=== PATIENT | male | born 1965 | race Caucasian/White ===

== ENCOUNTER 2018-02-11 17:28 | Emergency (ER) | payer BC, OTHER ==
--- NOTE | 2018-02-11 18:26 | ER ---
Nurse's Notes [facility] Name: Jeison Ramirez Age: 52 yrs Sex: Male : 1965 Arrival Date: 02/11/2018 Time: 17:33 Bed 16 Private MD: Ankit Douglas Diagnosis: Pain in left knee Presentation: 02/11 17:39 Presenting complaint: Patient states: I have been having left knee pain and stiffness la1 since I ran a half marathon recently. Transition of care: patient was not received from another setting of care. Onset of symptoms was February 11, 2018. Risk Assessment: Do you want to hurt yourself or someone else? Patient reports no desire to harm self or others. Initial Sepsis Screen: Does the patient meet any 2 criteria? No. Patient's initial sepsis screen is negative. Does the patient have a suspected source of infection? No. Patient's initial sepsis screen is negative. Care prior to arrival: None. 17:39 Method Of Arrival: Ambulatory la1 17:39 Acuity: BHARATI 4 la1 Historical: - Allergies: 17:39 No Known Allergies; la1 - PMHx: 17:39 None; la1 - PSHx: 17:39 back surgery; la1 - Immunization history:: Adult Immunizations up to date. - Social history:: Smoking status: Patient/guardian denies using tobacco. - Ebola Screening: : No symptoms or risks identified at this time. Screenin:59 Abuse screen: Denies threats or abuse. Denies injuries from another. Nutritional jl7 screening: No deficits noted. Tuberculosis screening: No symptoms or risk factors identified. Fall Risk None identified. Assessment: 17:59 General: Appears in no apparent distress. uncomfortable, Behavior is calm, cooperative, jl7 appropriate for age. Pain: Complains of pain in left knee Pain currently is 0 out of 10 on a pain scale. Neuro: Level of Consciousness is awake, alert, obeys commands, Oriented to person, place, time, situation. Cardiovascular: Patient's skin is warm and dry. Respiratory: Airway is patent Respiratory effort is even, unlabored, Respiratory pattern is regular, symmetrical. Derm: Skin is pink, warm \T\ dry. Musculoskeletal: Range of motion: intact in all extremities, Swelling present in left knee. Vital Signs: 17:40 Pulse 71; Resp 16; Temp 97.8; Pulse Ox 98% on R/A; Weight 102.06 kg; Height 5 ft. 9 in. la1 (175.26 cm); 17:41 BP 147 / 75; la1 17:40 Body Mass Index 33.23 (102.06 kg, 175.26 cm) la1 ED Course: 17:33 Patient arrived in ED. mr 17:34 Ankit Douglas MD is Private Physician. mr 17:39 Triage completed. la1 17:39 Arm band placed on right wrist. la1 17:43 [facility]. snw 17:43 Sanford Mckeon MD is Attending Physician. snw 17:47 Andrea Vo RN is Primary Nurse. jl7 17:59 Patient has correct armband on for positive identification. Placed in gown. Bed in low jl7 position. Call light in reach. Side rails up X 1. 18:24 Ankit Douglas MD is Referral Physician. snw 18:31 Knee immobilizer applied on left knee. 5 18:38 No provider procedures requiring assistance completed. Patient did not have IV access jl7 during this emergency room visit. 19:01 Knee Left 3 View XRAY In Process Unspecified. EDMS Administered Medications: 18:33 Drug: TORadol 60 mg Route: IM; Site: right gluteus; jl7 19:03 Follow up: Response: No adverse reaction jl7 Outcome: 18:25 Discharge ordered by . snw 18:38 Discharged to home ambulatory, with family. jl7 18:38 Condition: stable 18:38 Discharge instructions given to patient, family, Instructed on discharge instructions, follow up and referral plans. medication usage, Demonstrated understanding of instructions, follow-up care, medications, Prescriptions given X 1. 19:03 Patient left the ED. jl7 Signatures: Dispatcher [employer] EDMS Lina Tai FNP-C [facility] Belen Del ValleFox, RN RN Poppy Benavides [facility] Andrea Vo, LUCAS RN jl7
--- NOTE | 2018-02-11 18:26 | EDPHYS ---
Physician Documentation [facility] Name: Jeison Ramirez Age: 52 yrs Sex: Male : 1965 Arrival Date: 02/11/2018 Time: 17:33 Bed 16 Private MD: Ankit Douglas ED Physician Sanford Mckeon HPI: 02/11 23:40 This 52 yrs old Male presents to ER via Ambulatory with complaints of Knee snw Pain. 23:40 The patient presents with pain, that is acute. The complaints affect the posterior snw aspect of left knee and medial aspect of left knee. Context: The problem was sustained at home, resulted from running half-marathon one week ago, the patient can fully bear weight, the patient is able to ambulate, Problem is a result from a previous injury: No. Onset: The symptoms/episode began/occurred gradually, 1 week(s) ago, and became persistent. Associated signs and symptoms: Pertinent positives: popping in the joint. Severity of symptoms: At their worst the symptoms were moderate. The patient has not experienced similar symptoms in the past. The patient has not recently seen a physician. Historical: - Allergies: 17:39 No Known Allergies; la1 - PMHx: 17:39 None; la1 - PSHx: 17:39 back surgery; la1 - Immunization history:: Adult Immunizations up to date. - Social history:: Smoking status: Patient/guardian denies using tobacco. - Ebola Screening: : No symptoms or risks identified at this time. ROS: 23:39 Constitutional: Negative for fever, chills, and weight loss, Eyes: Negative for injury, snw pain, redness, and discharge, ENT: Negative for injury, pain, and discharge, Neck: Negative for injury, pain, and swelling, Cardiovascular: Negative for chest pain, palpitations, and edema, Respiratory: Negative for shortness of breath, cough, wheezing, and pleuritic chest pain, Abdomen/GI: Negative for abdominal pain, nausea, vomiting, diarrhea, and constipation, Back: Negative for injury and pain, : Negative for injury, bleeding, discharge, and swelling, Skin: Negative for injury, rash, and discoloration, Neuro: Negative for headache, weakness, numbness, tingling, and seizure. 23:39 MS/extremity: Positive for swelling, tenderness, of the left knee. Exam: 23:37 Constitutional: This is a well developed, well nourished patient who is awake, alert, snw and in no acute distress. Head/Face: Normocephalic, atraumatic. Eyes: Pupils equal round and reactive to light, extra-ocular motions intact. Lids and lashes normal. Conjunctiva and sclera are non-icteric and not injected. Cornea within normal limits. Periorbital areas with no swelling, redness, or edema. ENT: Nares patent. No nasal discharge, no septal abnormalities noted. Tympanic membranes are normal and external auditory canals are clear. Oropharynx with no redness, swelling, or masses, exudates, or evidence of obstruction, uvula midline. Mucous membranes moist. Neck: Trachea midline, no thyromegaly or masses palpated, and no cervical lymphadenopathy. Supple, full range of motion without nuchal rigidity, or vertebral point tenderness. No Meningismus. Chest/axilla: Normal chest wall appearance and motion. Nontender with no deformity. No lesions are appreciated. Cardiovascular: Regular rate and rhythm with a normal S1 and S2. No gallops, murmurs, or rubs. Normal PMI, no JVD. No pulse deficits. Respiratory: Lungs have equal breath sounds bilaterally, clear to auscultation and percussion. No rales, rhonchi or wheezes noted. No increased work of breathing, no retractions or nasal flaring. Abdomen/GI: Soft, non-tender, with normal bowel sounds. No distension or tympany. No guarding or rebound. No evidence of tenderness throughout. Back: No spinal tenderness. No costovertebral tenderness. Full range of motion. Skin: Warm, dry with normal turgor. Normal color with no rashes, no lesions, and no evidence of cellulitis. Neuro: Awake and alert, GCS 15, oriented to person, place, time, and situation. Cranial nerves II-XII grossly intact. Motor strength 5/5 in all extremities. Sensory grossly intact. Cerebellar exam normal. Normal gait. Psych: Awake, alert, with orientation to person, place and time. Behavior, mood, and affect are within normal limits. 23:37 Musculoskeletal/extremity: Extremities: grossly normal except: noted in the left knee: swelling, tenderness, Circulation is intact in all extremities. Sensation intact. Compartment Syndrome exam of affected extremity: is normal. tender to medial and posterior left knee. Vital Signs: 17:40 Pulse 71; Resp 16; Temp 97.8; Pulse Ox 98% on R/A; Weight 102.06 kg; Height 5 ft. 9 in. la1 (175.26 cm); 17:41 BP 147 / 75; la1 17:40 Body Mass Index 33.23 (102.06 kg, 175.26 cm) la1 MDM: 17:43 Patient medically screened. snw 23:38 Data reviewed: vital signs, nurses notes. Data interpreted: Pulse oximetry: on room air snw is 98 %. Interpretation: normal. Counseling: I had a detailed discussion with the patient and/or guardian regarding: the historical points, exam findings, and any diagnostic results supporting the discharge/admit diagnosis, the presence of at least one elevated blood pressure reading (>120/80) during this emergency department visit, radiology results, the need for outpatient follow up, to return to the emergency department if symptoms worsen or persist or if there are any questions or concerns that arise at home. Special discussion: I have referred the patient to see his PCP for further evaluation of high blood pressure. Based on the history and exam findings, there is no indication for further emergent testing or inpatient evaluation. I discussed with the patient/guardian the need to see the orthopedic surgeon for further evaluation of the symptoms. I discussed with the patient/guardian the need to see the primary care provider for further evaluation of the symptoms. 02/11 18:02 Order name: Knee Left 3 View XRAY snw 02/11 18:21 Order name: Knee Immobilizer; Complete Time: 18:22 snw Administered Medications: 18:33 Drug: TORadol 60 mg Route: IM; Site: right gluteus; jl7 19:03 Follow up: Response: No adverse reaction jl7 Disposition: 02/11/18 18:25 Discharged to Home. Impression: Pain in left knee. - Condition is Stable. - Discharge Instructions: Joint Pain, Knee Immobilizer, Musculoskeletal Pain, Knee Pain, Cryotherapy, [id number], Heat Therapy. - Prescriptions for Diclofenac Sodium 75 mg Oral Tablet Sustained Release - take 1 tablet by ORAL route 2 times per day; 30 tablet. - Medication Reconciliation Form, Thank You Letter, Antibiotic Education, Prescription Opioid Use form. - Follow up: Ankit Douglas MD; When: 2 - 3 days; Reason: Recheck today's complaints, Continuance of care, Re-evaluation by your physician. Follow up: Emergency Department; When: As needed; Reason: Worsening of condition. Addendum: 02/22/2018 15:43 Co-signature as Attending Physician, Sanford Mckeon MD Available for consultation at p s1 all times. . Signatures: Dispatcher [employer] EDMS Lina Tai, SAMPLE HAND-C SAMPLE HAND-[facility] Fox Hernandez RN RN la1 Andrea Vo RN RN jl7 Sanford Mckeon MD MD ps1 Corrections: (The following items were deleted from the chart) 02/11 19:03 18:25 02/11/2018 18:25 Discharged to Home. Impression: Pain in left knee. Condition is jl7 Stable. Forms are Medication Reconciliation Form, Thank You Letter, Antibiotic Education, Prescription Opioid Use. Follow up: Ankit Douglas; When: 2 - 3 days; Reason: Recheck today's complaints, Continuance of care, Re-evaluation by your physician. Follow up: Emergency Department; When: As needed; Reason: Worsening of condition. snw
[2018-02-11] MEDS ORDERED: KETOROLAC 30 MG/ML INJ ONE (18:38)
--- NOTE | 2018-02-11 19:06 | RAD REPORT ---
EXAM DESCRIPTION: RAD - Knee Left 3 View - 02/11/2018 7:01 pm CLINICAL HISTORY: PAIN COMPARISON: No comparisons FINDINGS: Mild medial joint compartment space narrowing is present involving the left knee. Small am ount of suprapatellar joint fluid. No acute fracture or dislocation.
== END 2018-02-11 19:03 | disposition home or self-care (01) ==
LOC: ER 17:28
DX: M25.562 Pain in left knee (principal); X58.XXXA Exposure to other specified factors, initial encounter; Y93.02 Activity, running
CPT/HCPCS: 96372; 99284